=== PATIENT | female | born 2000 | race Caucasian/White ===

== ENCOUNTER 2018-05-06 00:31 | Emergency (ER) | payer SELFPAY ==
[2018-05-06 01:30] LABS: HEMATOCRIT 40.4 % (36.0-47.0); HEMOGLOBIN 13.8 g/dL (12.0-15.5); MEAN CORPUSCULAR HEMOGLOBIN 28.8 pg (27.0-33.4); MEAN CORPUSCULAR HGB CONC 34.2 g/dL (32.0-36.0); MEAN CORPUSCULAR VOLUME 84 fl (80-97); PLATELET COUNT 235 10^3/uL (150-450); RED BLOOD COUNT 4.79 10^6/uL (3.72-5.28); RED CELL DISTRIBUTION WIDTH 13.2 % (11.5-14.0); WHITE BLOOD COUNT 7.9 10^3/uL (4.0-10.5)
[2018-05-06 02:17] LABS: ABSOLUTE LYMPHOCYTES# (MANUAL) 1.3 10^3/uL (0.5-4.7); ABSOLUTE MONOCYTES # (MANUAL) 0.2 10^3/uL (0.1-1.4); ABSOLUTE NEUTROPHILS# (MANUAL) 5.9 10^3/uL (1.7-8.2); BASOPHILS % (MANUAL) 1 % (0-2); EOSINOPHILS % (MANUAL) 5 % (0-6); LYMPHOCYTES % (MANUAL) 15 % (13-45); MONOCYTES % (MANUAL) 2 % (3-13); SEGMENTED NEUTROPHILS % (MAN) 75 % (42-78); TOTAL CELLS COUNTED 100
[2018-05-06 02:18] LABS: TOXIC GRANULATION SLIGHT
[2018-05-06 02:19] LABS: PLATELET COMMENT ADEQUATE; RBC MORPHOLOGY COMMENT NORMO-CYTIC/CHROMIC
[2018-05-06] MEDS ORDERED: ACETAMINOPHEN 325 MG TABLET PO ONE (03:08)
--- NOTE | 2018-05-06 03:38 | ER Document Report ---
ED General - General Chief Complaint: Abdominal Pain Stated Complaint: ABDOMINAL PAIN Time Seen by Provider: 05/06/18 00:44 Notes: Patient is a 17-year-old female presents with complaint of abdominal pain. She just took a test a few hours ago and realized that she was therefore came to the ER. This is her first . No vomiting. No abnormal vaginal discharge or bleeding. No dysuria. No other complaints at this time. She says the suprapubic pain is been there for approximately week. Last menstrual period was at the beginning of April. TRAVEL OUTSIDE OF THE [place] IN LAST 30 DAYS: No - Related Data Allergies/Adverse Reactions: azithromycin [From Zithromax Z-Zach] Allergy (Verified 05/06/18 00:34) latex Allergy (Verified 05/06/18 00:34) nickel Allergy (Verified 05/06/18 00:34) Past Medical History - Social History Smoking Status: Unknown if Ever Smoked Frequency of alcohol use: None Drug Abuse: None Family History: Reviewed & Not Pertinent Patient has suicidal ideation: No Patient has homicidal ideation: No Renal/ Medical History: Denies: Hx Peritoneal Dialysis Review of Systems - Review of Systems Notes: My Normal Review Basic REVIEW OF SYSTEMS: CONSTITUTIONAL : Denies fever, chills, or sweats. Denies recent illness. RESPIRATORY: Denies cough, cold, or chest congestion. Denies shortness of breath, difficulty breathing, or wheezing. GASTROINTESTINAL: Suprapubic abdominal pain. No nausea vomiting. GENITOURINARY: Denies difficulty urinating, painful urination, burning, frequency, or blood in urine. FEMALE GENITOURINARY: Denies vaginal bleeding, abnormal or irregular periods. LMP: Positive test at home. MUSCULOSKELETAL: Denies neck or back pain or joint pain or swelling. SKIN: Denies rash or skin lesions. NEUROLOGICAL: Denies altered mental status or loss of consciousness. ALL OTHER SYSTEMS REVIEWED AND NEGATIVE. Physical Exam - Vital signs Vitals: Temp Pulse Resp BP Pulse Ox 98.4 F 80 18 139/79 H 100 05/06/18 00:36 05/06/18 00:36 05/06/18 00:36 05/06/18 00:36 05/06/18 00:36 - Notes Notes: General Appearance: Well nourished, alert, cooperative, no acute distress, no obvious discomfort. Well appearing. Vitals: reviewed, See vital signs table. Eyes: PERRL, EOMI, Conjuctiva clear Mouth: No decreasd moisture Lungs: No wheezing, No rales, No rhonci, No accessory muscle use, good air exchange bilaterally. Heart: Normal rate, Regular rythm, No murmur, no rub Abdomen: Normal BS, soft, No rigidity, No reproducible abdominal tenderness palpation, No guarding, no rebound, Extremities: strength 5/5 in all extremities, good pulses in all extremities, no swelling or tenderness in the extremities, no edema. Skin: warm, dry, appropriate color, no rash Neuro: speech clear, oriented x 3, normal affect, responds appropriately to questions. Course - Re-evaluation Re-evalutation: 05/06/18 05:34 Patient is a suitable is only 400. Cannot yet seen an IUP on ultrasound. Informed patient that is expected that we cannot see an IUP exposure hCG level was so low. Patient is actually visiting from out of town. She supposed to go home this weekend. She does not yet have an OB doctor. Being that she does have the pain I will have her return to ER in 2 days for repeat hCG level to see if it is increasing or decreasing. I talked to her and her mom and her boyfriend at length. Informed him that this could still be an early ectopic however it is too early to tell the ultrasound alone. Informed her that this could be early signs of a miscarriage or this could just be pain in the early normal . Informed him to return to the ER in 2 days for reevaluation of her abdomen as well as to have her hCG level rechecked. I encouraged her return to ambulate if she has worsening pain, vomiting, any abnormal vaginal discharge or bleeding, any dysuria, any fevers, or she feels unwell. Patient agrees with plan will be discharged home. Dictation of this chart was performed using voice recognition software; therefore, there may be some unintended grammatical errors. - Vital Signs Vital signs: Temp Pulse Resp BP Pulse Ox 98.7 F 76 17 123/62 97 05/06/18 04:36 05/06/18 04:36 05/06/18 04:36 05/06/18 04:36 05/06/18 04:36 - Laboratory Result Diagrams: 05/06/18 01:17 Laboratory results interpreted by me: 05/06/18 05/06/18 01:17 01:17 Monocytes % (Manual) 2 L Beta HCG, Quant 410.48 H Discharge - Discharge Clinical Impression: Qualifiers: Weeks of gestation: less than 8 weeks Qualified Code(s): Z3A.01 - Less than 8 weeks gestation of Abdominal pain Qualifiers: Abdominal location: lower abdomen, unspecified Qualified Code(s): R10.30 - Lower abdominal pain, unspecified Condition: Good Disposition: HOME, SELF-CARE Additional Instructions: Your test is positive here. Your hCG level is only 400 which is why we cannot yet see the on ultrasound. You're currently too early to see the on Ultrasound. Being that we cannot see the we do not know if you potentially have an ectopic or a normal intrauterine . It is also possible that you are showing signs of an early miscarriage. In order to further clarify exactly what is causing the pain we need you to return in 2 days so can repeat your hCG level to see if it is increasing or not. Once your hCG level reaches 1500 we can do a repeat ultrasound to further evaluate the location of your . Please return on Thursday for reevaluation and repeat of your blood work. Please return to ER immediately if you have fevers, vomiting, abnormal vaginal discharge, vaginal bleeding, or worsening pain.
[2018-05-06 03:41] LABS: APPEARANCE,URINE CLEAR; BILIRUBIN,URINE NEGATIVE (NEGATIVE); COLOR,URINE YELLOW; GLUCOSE, URINE NEGATIVE (NEGATIVE); KETONES,URINE NEGATIVE (NEGATIVE); LEUKOCYTE ESTERASE,URINE NEGATIVE (NEGATIVE); NITRITE,URINE NEGATIVE (NEGATIVE); PROTEIN,URINE NEGATIVE (NEGATIVE); URINE SPECIFIC GRAVITY 1.015; UROBILINOGEN,URINE NEGATIVE mg/dL (<2.0)
--- NOTE | 2018-05-06 03:57 | RADIOLOGY REPORT (SQ) ---
EXAM DESCRIPTION: US TRANSVAGINAL COMPLETED DATE/TME: 05/06/2018 02:00 CLINICAL HISTORY: 17 years, Female, abdominal pain in COMPARISON: None. TECHNIQUE: Transvaginal LIMITATIONS: None. FINDINGS: No IUP identified at this time. 8.2 cm uterus, 3.2 cm cervical length, 2.1 cm thick endometrial stripe, 2.8 cm right ovary, 3.5 cm left ovary, and possible 2.3 cm left ovarian corpus luteum. No free fluid. IMPRESSION: No IUP identified. Differential diagnosis includes early occult gestation, gestational loss, and occult ectopic gestation. Recommend 48 to 72 hours laboratory/sonographic surveillance.
[2018-05-06 04:37] VITALS: BP 123/62
== END 2018-05-06 04:36 | disposition home or self-care (01) ==
LOC: ER 00:31
DX: O26.891 Other specified pregnancy related conditions, first trimester (principal); R10.30 Lower abdominal pain, unspecified; Z3A.01 Less than 8 weeks gestation of pregnancy
CPT/HCPCS: 36415; 76817; 81001; 84702; 85025; 86850; 86900; 86901; 93976; 99284

== ENCOUNTER 2018-05-07 22:15 | Emergency (ER) | payer SELFPAY ==
--- NOTE | 2018-05-07 23:38 | ER Document Report ---
ED General - General Chief Complaint: Lower Abdominal Pain Stated Complaint: FOLLOW UP Time Seen by Provider: 05/07/18 23:08 Notes: Patient is a 17-year-old female who is who presents with complaint of some intermittent pelvic cramping. I evaluated the patient 2 days ago. At that time she had a normal urinalysis. Ultrasound cannot you see an intrauterine . Her hCG level was only 400. I told her come back to [facility] for recheck her hCG level. She is back today. She says she still has some intermittent pelvic cramping but is not severe. She denies any vaginal bleeding. She has developed some abnormal whitish discharge which she did not have 2 days ago. No fevers. No other complaints at this time. Pain and cramping is in the suprapubic region. TRAVEL OUTSIDE OF THE [place] IN LAST 30 DAYS: No - Related Data Allergies/Adverse Reactions: azithromycin [From Zithromax Z-Azch] Allergy (Verified 05/06/18 00:34) latex Allergy (Verified 05/06/18 00:34) nickel Allergy (Verified 05/06/18 00:34) Past Medical History - Social History Smoking Status: Never Smoker Frequency of alcohol use: None Drug Abuse: None Family History: Reviewed & Not Pertinent Renal/ Medical History: Denies: Hx Peritoneal Dialysis Review of Systems - Review of Systems Notes: My Normal Review Basic REVIEW OF SYSTEMS: CONSTITUTIONAL : Denies fever, chills, or sweats. Denies recent illness. EENT: Denies eye, ear, throat, or mouth pain or symptoms. Denies nasal or sinus congestion. RESPIRATORY: Denies cough, cold, or chest congestion. Denies shortness of breath, difficulty breathing, or wheezing. GASTROINTESTINAL: Denies abdominal pain. Denies nausea, vomiting, or diarrhea. Denies constipation. Last BM: GENITOURINARY: Denies difficulty urinating, painful urination, burning, frequency, or blood in urine. FEMALE GENITOURINARY: currently , no vaginal bleeding, pelvic cramping MUSCULOSKELETAL: Denies neck or back pain or joint pain or swelling. SKIN: Denies rash or skin lesions. NEUROLOGICAL: Denies altered mental status or loss of consciousness. Denies headache. Denies weakness or paralysis or loss of use of either side. Denies problems with gait or speech. Denies sensory or motor loss. ALL OTHER SYSTEMS REVIEWED AND NEGATIVE. Physical Exam - Vital signs Vitals: Temp Pulse BP Pulse Ox 98.4 F 72 133/74 H 100 05/07/18 22:32 05/07/18 22:32 05/07/18 22:32 05/07/18 22:32 - Notes Notes: General Appearance: Well nourished, alert, cooperative, no acute distress, no obvious discomfort. Vitals: reviewed, See vital signs table. Head: no swelling or tenderness to the head Eyes: PERRL, EOMI, Conjuctiva clear Lungs: No wheezing, No rales, No rhonci, No accessory muscle use, good air exchange bilaterally. Heart: Normal rate, Regular rythm, No murmur, no rub Abdomen: Normal BS, soft, No rigidity, No abdominal tenderness to palpation, No guarding, no rebound, no abdominal masses, no organomegaly Pelvic: Normal external genitalia. Small amount of whitish discharge in vaginal vault. Smell consistent with that of bacterial vaginosis. No blood in vaginal vault. Pelvic exam performed with female Night Shift Supervisor Maren HENDERSON. Extremities: good pulses in all extremities, no edema. Skin: warm, dry, appropriate color, no rash Neuro: speech clear, oriented x 3, normal affect, responds appropriately to questions. Course - Re-evaluation Re-evalutation: 05/08/18 03:34 Patient is examined wet prep are consistent with that of bacterial vaginosis. Her hCG is increasing appropriately and is up to 900. I informed him we would still not be able to see evidence of patency on repeat ultrasound today and therefore is no reason repeating it. Patient says that she does have some intermittent cramping and pain but she is not in any significant pain on exam and has no reproducible pain to palpation therefore I think the risk of ectopic is low at this time. I did inform the patient and family of this but told her that she still needs to have repeat ultrasound in 3-4 days to confirm that the is in the uterus in order to fully rule out an ectopic. Patient agrees to have this performed. She is going back home today. She said she will call her OB doctor make appointments for she gets back. Informed her if she still having pain by Thursday or Thursday and does not yet have an appointment that she should follow-up with the ER to get reevaluated. I encourage her to go to the nearest ER immediately if she has increasing pain, vaginal bleeding, or feels unwell. Patient agrees with plan will be discharged home. Dictation of this chart was performed using voice recognition software; therefore, there may be some unintended grammatical errors. - Vital Signs Vital signs: Temp Pulse Resp BP Pulse Ox 98.7 F 87 17 108/50 L 100 05/08/18 01:54 05/08/18 01:54 05/08/18 01:54 05/08/18 01:54 05/08/18 01:54 - Laboratory Laboratory results interpreted by me: 05/07/18 23:32 Beta HCG, Quant 900.30 H Discharge - Discharge Clinical Impression: Bacterial vaginosis Qualifiers: Weeks of gestation: less than 8 weeks Qualified Code(s): Z3A.01 - Less than 8 weeks gestation of Condition: Good Disposition: HOME, SELF-CARE Additional Instructions: PLease call an OB doctor for close follow up on Thursday. If you are still having pain and can not followup until after Thursday than you should go to the nearest ER for reevaluation and repeat ultrasound to ensure that your is in the uterus and not ectopic. Please go to the nearest ER immediately if you develop worsening pain, vaginal bleeding, fevers, or feel unwell. Prescriptions: Metronidazole [Flagyl 500 mg Tablet] 500 mg PO BID #14 tablet Pnv No.95/Ferrous Fum/Folic AC [ Vitamin Tablet] 1 each PO DAILY #30 tablet
[2018-05-08 00:34] LABS: RBCS (WET MOUNT) FEW RBCS SEEN; T.VAGINALIS (WET MOUNT) NO TRICHOMONAS SEEN; WBCS (WET MOUNT) 3+ WBCS SEEN; YEAST (WET MOUNT) NO YEAST SEEN
[2018-05-08] MEDS ORDERED: METRONIDAZOLE 500 MG TABLET PO ONE (01:19)
[2018-05-08 01:55] VITALS: BP 108/50
[2018-05-08 02:04] LABS: CHLAM PCR NOT DETECTED (NOT DETECT); GON PCR NOT DETECTED (NOT DETECT)
== END 2018-05-08 01:55 | disposition home or self-care (01) ==
LOC: ER 22:15
DX: O23.591 Infection of other part of genital tract in pregnancy, first trimester (principal); B96.89 Other specified bacterial agents as the cause of diseases classified elsewhere; O26.891 Other specified pregnancy related conditions, first trimester; R10.2 Pelvic and perineal pain; Z3A.01 Less than 8 weeks gestation of pregnancy; Z88.1 Allergy status to other antibiotic agents; Z91.040 Latex allergy status
CPT/HCPCS: 36415; 84702; 87210; 87491; 87591; 99284